=== PATIENT | female | born 1990 | race Caucasian/White ===

== ENCOUNTER 2021-12-16 15:43 | Emergency (ER) | payer BC ==
[~2021-12-16] VITALS: Ht 157.5 cm; Wt 78.5 kg
[2021-12-16] MEDS ORDERED: NORCO 325 MG-51 TA1 PO (16:31)
[2021-12-16] MEDS ORDERED: AMOXICILLIN AND1 TA2 PO (16:48)
[2021-12-16 16:50] VITALS: BP 116/72
== END 2021-12-16 16:53 | disposition home or self-care (01) ==
LOC: ED 15:43
DX: S51.852A Open bite of left forearm, initial encounter (principal); Z88.0 Allergy status to penicillin; Z28.311 Partially vaccinated for COVID-19; W54.0XXA Bitten by dog, initial encounter; Y92.410 Unspecified street and highway as the place of occurrence of the external cause